=== PATIENT | male | born 1985 | race Caucasian/White ===

== ENCOUNTER 2017-07-20 20:34 | Emergency (ER) | payer BC ==
[~2017-07-20] VITALS: Ht 185.4 cm; Wt 90.7 kg
--- NOTE | 2017-07-20 20:42 | ER Report ---
History and Physical Time Seen By MD: 20:41 HPI/ROS CHIEF COMPLAINT: throat pain and swelling HISTORY OF PRESENT ILLNESS: This is a 31 year old male. He has some pain and swelling on the left side of his throat. Noted it yesterday. Pain with swallowing. No sick contact. No shortness of breath or chest pain. Some pain in the left side of face and neck. Allergies: Coded Allergies: morphine (Verified Allergy, Intermediate, RASH , 07/20/17) Home Meds Active Scripts Hydrocodone Bit/Acetaminophen (HYDROCODON-ACETAMINOPHEN 5-325) 1 Each Tablet, 1 EACH PO Q4H Y for PAIN, #8 TAB 0 Refills Prov:AMIRAH GARCIA MD 07/20/17 Methylprednisolone (METHYLPREDNISOLONE) 4 Mg Tab.ds.pk, 4 MG PO DIRECTED, #1 PACK 0 Refills Prov:AMIRAH GARCIA MD 07/20/17 Reviewed Nurses Notes: Yes Constitutional Vital Sign - Last 24 Hours 07/20/17 20:42 Temp 98.1 Pulse 99 Resp 16 B/P (MAP) 123/90 Pulse Ox 95 O2 Delivery Room Air Physical Exam General: Alert, no acute distress. Eyes: Pupils are round, equal and normal sclera. ENT: Erythematous nasal mucosa. Erythema with some shallow ulcerations in the posterior oropharynx with a small amount of soft tissue swelling present. Painful to swallow. No hypertrophy noted. Neck: Soft, supple and there are some anterior cervical chain lymphadenopathy. Chest: Breathing easily and clear. Cardiovascular: Regular rate and rhythm. Skin: No rashes. Medical Decision Making Data Points Laboratory Hematology Test 07/20/17 20:52 Influenza Virus Type A (PCR) Negative (NEGATIVE) Influenza Virus Type B (PCR) Negative (NEGATIVE) Group A Streptococcus Screen Negative (NEGATIVE) Chemistry Test 07/20/17 20:52 Influenza Virus Type A (PCR) Negative (NEGATIVE) Influenza Virus Type B (PCR) Negative (NEGATIVE) Group A Streptococcus Screen Negative (NEGATIVE) ED Course/Re-evaluation ED Course Initial strep and influenza swabs negative. Pain was worsening and the patient felt like more swelling. Re-evaluation was done and there was a little more swelling in the right throat as noted, but no a large amount. However, because of the progression of symptoms in a short time, we gave a 10mg IM infection of Decadron. The patient also had some Lortab. Watched for a period of time. The patient had improved pain and the swelling had decreased, although not completely. Will continue with Medrol Dosepak as noted. Did discuss that if this worsens to return and we would consider CT scan soft tissue neck, and did offer to do this while they were here even though swelling is mild and did not suspect that there would be any problems noted on scan. They will defer at this time and consider if worsening. Decision to Disposition Date: Jul 20, 2017 Decision to Disposition Time: 22:49 Depart Departure Latest Vital Signs Vital Signs Date Time Temp Pulse Resp B/P (MAP) Pulse Ox O2 Delivery O2 Flow Rate FiO2 07/20/17 20:42 98.1 99 16 123/90 95 Room Air Impression: Primary Impression: Acute viral pharyngitis Condition: Improved Disposition: HOME OR SELF-CARE New Scripts Hydrocodone Bit/Acetaminophen (HYDROCODON-ACETAMINOPHEN 5-325) 1 Each Tablet 1 EACH PO Q4H Y for PAIN, #8 TAB 0 Refills Prov: AMIRAH GARCIA MD 07/20/17 Methylprednisolone (METHYLPREDNISOLONE) 4 Mg Tab.ds.pk 4 MG PO DIRECTED, #1 PACK 0 Refills Prov: AMIRAH GARCIA MD 07/20/17 Patient Instructions: Pharyngitis (ED) Additional Instructions: Your sore throat appears to be due to a viral infection. Take Ibuprofen 200mg over the counter tablets, 4 tablets every 8 hours for pain. Take Lortab 5/325, one every 4 hours as needed for pain. Take the steroid pack called a Medrol Dosepak over the next 6 days. Return for worsening symptoms. AMIRAH GARCIA MD Jul 20, 2017 20:42
[2017-07-20] MEDS ORDERED: APAP/HYDROCODONE 325/5 TAB PO ONE (21:45)
[2017-07-20] MEDS ORDERED: ACET/HYDROC 5/325MG TH ER ONLY 2 TAB/BOTTLE PO ONE (21:45)
[2017-07-20] MEDS ORDERED: DEXAMETHASONE SOD PHOS 10MG/ML IM ONE (21:45)
[2017-07-20] MEDS ORDERED: LOR5/325 PO (22:51)
[2017-07-20] MEDS ORDERED: METH4TAB66 PO (22:51)
[2017-07-20 22:59] VITALS: BP 116/82
== END 2017-07-20 22:59 | disposition home or self-care (01) ==
LOC: ER 20:59
DX: J02.8 Acute pharyngitis due to other specified organisms (principal)
CPT/HCPCS: 87081; 87502; 87880; 96372; 99283; J1100

== ENCOUNTER → 2018-12-30 | Outpatient (CLI) | payer BC ==
[~2018-12-30] MED LIST: IBUP-136 PO; LOR5/325 PO; METH4TAB66 PO
--- NOTE | 2018-12-30 17:16 | RADIOLOGY IMAGING REPORT ---
FACILITY: [facility] - [place] PATIENT NAME: Jose Alfredo Vallecillo : 1985 MR: [id number] V: [id number] EXAM DATE: ORDERING PHYSICIAN: LISA GUTIERREZ TECHNOLOGIST: Location: [facility] - [place] Patient: Jose Alfredo Vallecillo : 1985 Visit/Account:[id number] Date of Sevice: 12/30/2018 TESTICULAR HISTORY: Left orchialgia COMPARISON: None. FINDINGS: Testes: Right testicle measures 4.1 x 2.5 x 3.6 cm. The left chest, measures 4.3 x 2.7 x 3.1 cm. Sy mmetric and unremarkable blood flow documented by color and Duplex Doppler ultrasound. Epididymides: There is a 1.5 mm cyst in the head epididymis on the right. The epididymides appear sl ightly heterogeneous bilaterally. Blood flow is unremarkable in each epididymis by color Doppler ult rasound. Hydrocele: Small bilaterally Varicocele: None. IMPRESSION: Small bilateral hydroceles Tiny cyst in the head epididymis on the right Epididymides appear slightly heterogeneous bilaterally possibly reflecting epididymitis Report Dictated By: Omaira Borja MD at 12/30/2018 5:07 PM Report E-Signed By: Omaira Borja MD at 12/30/2018 5:09 PM WSN:JAROD
== END ==
LOC: US 16:31
DX: N43.3 Hydrocele, unspecified (principal)
CPT/HCPCS: 76870

== ENCOUNTER 2019-01-01 03:36 | Emergency (ER) | payer BC ==
--- NOTE | 2019-01-01 03:40 | ER Report ---
History and Physical Time Seen By MD: 03:35 HPI/ROS CHIEF COMPLAINT: Suicidal ideation, depression HISTORY OF PRESENT ILLNESS: 33-year-old male brought in by police as a voluntary admission for suicidal ideation. Patient severely depressed. His for 15 years left him 2 weeks ago. They have one child. He's been sending her texts that are suspicious for suicidal ideation. Patient denies drug or alcohol. Patient has no actual plan. Patient's taken levofloxacin for prostatitis and epididymitis. REVIEW OF SYSTEMS: Respiratory: No cough, no dyspnea. Cardiovascular: No chest pain, no palpitations. Gastrointestinal: No vomiting, no abdominal pain. Musculoskeletal: No back pain. Allergies: Coded Allergies: morphine (Verified Allergy, Intermediate, RASH , 01/01/19) Home Meds Reported Medications Ibuprofen (IBUPROFEN) 200 Mg Capsule, 2 CAP PO Q6H, CAPSULE 01/28/18 Reviewed Nurses Notes: Yes Old Medical Records Reviewed: Yes Smoking Status: Never Smoker Constitutional Vital Sign - Last 24 Hours 01/01/19 01/01/19 01/01/19 01/01/19 03:40 03:45 03:51 04:00 Temp 98.2 Pulse 75 83 Resp 14 B/P (MAP) 143/104 (117) 143/104 140/89 (106) Pulse Ox 94 95 O2 Delivery Room Air 01/01/19 01/01/19 01/01/19 04:30 04:36 04:51 Pulse 90 B/P (MAP) 137/88 (104) Pulse Ox 94 92 Physical Exam General Appearance: The patient is alert, has no immediate need for airway protection and no current signs of toxicity. Vital signs stable, afebrile, pulse ox normal, seems withdrawn and depressed HEENT: Pupils equal and round no injection. TMs normal, oropharynx without redness or exudate Respiratory: Chest is non tender, lungs are clear to auscultation. Cardiac: regular rate and rhythm Gastrointestinal: Abdomen is soft and non tender, no masses, bowel sounds normal. Musculoskeletal: Neck: Neck is supple and non tender. No thyromegaly, no lymphadenopathy Extremities have full range of motion and are non tender. Skin: No rashes or lesions. DIFFERENTIAL DIAGNOSIS: After history and physical exam differential diagnosis was considered for depression including functional and major depression, situational depression, medication side effect, drugs and alcohol abuse. Medical Decision Making Data Points Result Diagram: 01/01/19 0400 Laboratory Chemistry Test 01/01/19 04:00 Sodium Level 140 mmol/L (137-145) Potassium Level 4.2 mmol/L (3.5-5.0) Chloride Level 105 mmol/L (98-107) Carbon Dioxide Level 24 mmol/L (22-30) Blood Urea Nitrogen 20 mg/dl (9-21) Creatinine 1.00 mg/dl (0.66-1.25) Glomerular Filtration Rate Calc > 60.0 Random Glucose 87 mg/dl (75-110) Calcium Level 9.8 mg/dl (8.4-10.2) Magnesium Level 2.0 mg/dl (1.7-2.2) Total Bilirubin 1.0 mg/dl (0.2-1.3) Aspartate Amino Transf (AST/SGOT) 39 U/L (0-35) Alanine Aminotransferase (ALT/SGPT) 44 U/L (0-56) Alkaline Phosphatase 47 U/L (0-126) Total Protein 7.9 g/dl (6.3-8.2) Albumin 4.8 g/dl (3.5-5.0) Thyroid Stimulating Hormone (TSH) 7.94 uIU/ml (0.46-4.68) Toxicology Test 01/01/19 03:36 01/01/19 04:00 Urine Opiates Screen Positive Urine Barbiturates Screen Negative Ur Tricyclic Antidepressants Screen Negative Urine Phencyclidine Screen Negative Urine Amphetamines Screen Negative Urine Benzodiazepines Screen Negative Urine Cocaine Screen Negative Urine Cannabinoids Screen Negative Salicylates Level < 10 mg/L Salicylate Last Dose Date unk Acetaminophen Level < 10 ug/ml Serum Alcohol < 10 mg/dl Urinalysis Test 01/01/19 03:36 Urine Color Yellow Urine Clarity Clear Urine pH 6.0 pH (4.8-9.5) Urine Specific [place] 1.023 Urine Protein Negative mg/dL (NEGATIVE) Urine Glucose (UA) Negative mg/dL (NEGATIVE) Urine Ketones Negative mg/dL (NEGATIVE) Urine Blood Moderate (NEGATIVE) Urine Nitrite Negative (NEGATIVE) Urine Bilirubin Negative (NEGATIVE) Urine Urobilinogen Negative mg/dL (0.2-1.9) Urine Leukocyte Esterase Negative (NEGATIVE) Urine RBC None /HPF (0-2/HPF) Urine WBC 1 /HPF (0-5/HPF) Urine Squamous Epithelial Cells Few /LPF (</=FEW) Urine Bacteria Negative /HPF (NONE-FEW) Urine Mucus Few /HPF (NONE-FEW) ED Course/Re-evaluation ED Course Patient was admitted to an examination room. H&P was done. The differential d iagnoses was considered. Patient is not actually suicidal. He said some suspicious text to his . She ranged him to meet with the police. Claiming that she was going to meet him to discuss her marital discord. Patient denies alcohol or drug use. Patient's tox screen is positive for opiates. Patient seen in consultation with mental health services who have no available for admission at this time. Patient is not actually suicidal is no actual plan. He is referred to outpatient follow-up. He is provided resources to contact. Decision to Disposition Date: Jan 01, 2019 Decision to Disposition Time: 03:51 Depart Departure Latest Vital Signs Vital Signs Date Time Temp Pulse Resp B/P (MAP) Pulse Ox O2 Delivery O2 Flow Rate FiO2 01/01/19 04:51 92 01/01/19 04:36 90 01/01/19 04:30 137/88 (104) 01/01/19 03:45 98.2 14 Room Air Impression: Primary Impression: Depression Additional Impression: Marital estrangement Condition: Improved Disposition: HOME OR SELF-CARE Patient Instructions: Depression (ED) Additional Instructions: Follow-up with mental health counseling Return to the ER for any suicidal ideation Problem Qualifiers Primary Impression: Depression Depression Type: major depressive disorder Major depression recurrence: single episode Active/Remission status: currently active Major depression episode severity: moderate Qualified Codes: F32.1 - Major depressive disorder, single episode, moderate MARLON LARSEN DO Jan 01, 2019 03:40
[2019-01-01 04:30] VITALS: BP 137/88
== END 2019-01-01 04:56 | disposition home or self-care (01) ==
LOC: ER 04:13
DX: F32.1 Major depressive disorder, single episode, moderate (principal)
CPT/HCPCS: 36415; 80305; 80320; 80329; 81001; 82040; 82247; 82310; 82374; 82435; 82565; 82947; 83735; 84075; 84132; 84155; 84295; 84443; 84450; 84460; 84520; 99283

== ENCOUNTER 2019-01-16 00:42 | Inpatient (IN) | payer BC ==
[~2019-01-16] VITALS: Ht 182.9 cm; Wt 88.5 kg
[~2019-01-16 00:42] MED LIST changes: +LEVO500T83 PO
[2019-01-16] MEDS ORDERED: LORazepam 1 MG TAB PO ONE (00:50)
[2019-01-16] MEDS ORDERED: MAG HYD/AL HYD/SIMETH 30ML UDC PO PRN (00:50)
[2019-01-16] MEDS ORDERED: ACETAMINOPHEN 325 MG TAB PO PRN (00:50)
[2019-01-16 01:57] VITALS: BP 131/97
[2019-01-16] MEDS ORDERED: MULTIVITAMINS TAB PO SCH (09:00)
[2019-01-16] MEDS: TRIMETH/SULFA DS 160-800MG TAB PO SCH ×2 (09:42→20:31)
[2019-01-16 13:00] VITALS: BP 120/68
--- NOTE | 2019-01-16 13:25 | SCHAAF H&P ---
DATE OF ADMISSION: January 16, 2019 Patient was seen at approximately 1030 hours in the a.m. of January 16, 2019 for note concerning this dictation. ATTENDING PHYSICIAN Julio Pereira MD PRESENTING PROBLEM/CHIEF COMPLAINT "My left and moved out." HISTORY OF PRESENT ILLNESS This is a pleasant 33-year-old male who presents to the emergency room for the second time this month, notably under very similar circumstances on January 01, 2019. Patient having a falling out with his . She is noted to be filing for divorce today. Patient has reportedly made suicidal threats to his . She told her , the patient, that he would have to come to the hospital if she would call police. Patient somewhat reluctantly came to the ER and was admitted without incident. Patient again reiterating during initial psychiatric interview that his admission here to the hospital was "100%" related to his filing for divorce. She said that she and him talked over her filing for divorce today last night and this resulted in patient's further decompensating mood, although it has been a low for a long time. The patient additionally reports specific stressors in that he works a lot and again deteriorating relationship. When asked about depressive symptoms, patient reports his appetite has been down some and he has lost some weight. He is guilty and remorseful and he wished he would not have "worked so much". Energy is low. Concentration is okay. Patient reports he does have interest in some activities, his mood remains low and sleep is sometimes problematic. Patient denies any other symptoms of psychiatric concerns. Negative for any self-arm issues, PTSD or patient not away of any psychotic symptoms. Patient's notably talking on the phone and says the patient has been "different overall" and exhibiting some uncharacteristic paranoid type behaviors. Patient's does not think the patient would harm himself. However, he is making comments and she wanted to make sure he gets help. MENTAL HEALTH HISTORY Patient has never had an inpatient visit before. He has no formal psychiatric care. Patient was encouraged to seek formal care when he left the emergency room on January 01, 2019 but has not obtained any actual appointments yet. Patient has no history of suicide attempts. FAMILY PSYCHIATRIC HISTORY Overall unremarkable except patient reported that his father saw a therapist for years after his brother was killed at age 10, when the patient was 5, in a farm accident. There are no suicides in the family. Not believed to be any drug or alcohol use. PAST MEDICAL HISTORY Significant for what appears to be a bout of prostatitis and patient notably started on Levaquin, which could potentially exacerbate depressive or even mild psychotic symptoms in this patient. Patient also notably positive for opiates both on January 01 and January 16, 2019 admission. However, patient believably stating he is not taking opiates and this is likely a false positive related to Levaquin administration. Patient reports he has had "lots of concussions" through his life of various reasons and patient reports "ongoing shoulder pain and back pain". ALLERGIES Morphine. SOCIAL HISTORY The patient was born in [place] and raised there. Parents were at the time of his and still are. He is the youngest of four children. He reports his brother at age 10 in a farming accident when the patient himself was 5 years old and this continues to bother him somewhat to this day. He is a high school graduate. Obtained a Bachelor's degree of [employer]. Patient has never been in the . He has been 12 years and they have one child, age 12. Patient works doing ranch work mostly and currently has been living alone as his has an apartment in town and she is filing for divorce. LEGAL HISTORY None. SUBSTANCE ABUSE HISTORY Patient reports non. PHYSICAL EXAMINATION Please see emergency room note. This is a 33-year old male in no acute medical distress. Vital signs at the time of admission: Temperature 97.6, pulse 86, respiratory rate 20, blood pressure 131/90 and pulse oximetry 91% on room air. LABORATORY DATA TSH 4.66, CBC unremarkable. RBC slightly elevated at 6.18. Chemistry panel overall unremarkable as well. TSH 4.66. Urinalysis unremarkable and toxicology screen again positive for opiates, which is likely a false positive from Levaquin, negative for other substances of abuse with a nondetectable serum alcohol level. MENTAL STATUS EXAMINATION GENERAL APPEARANCE, BEHAVIOR AND ATTITUDE: This is a polite, cooperative, 33- year old male. Psychomotor retardation evident. Patient tearful, making poor to fair eye contact. Patient admitting to significant depression over the realization that his is filing for divorce. We will continue to evaluate. SPEECH: Within normal limits. Quiet at times. Otherwise, mostly within normal limits. Regular rate, rhythm, volume and tone. MOOD: Depressed. AFFECT: Depressed appearing. THOUGHT PROCESSES: No gross loose associations or flight of ideas. THOUGHT CONTENT: Free of auditory or visual hallucinations, ideas of reference, thought broadcastings, delusions, obsessions or compulsions. Patient admitting to feeling very down and admitting vaguely to suicidal thoughts. Patient has texted his suicidal statements. Denying homicidal ideations. SENSORIUM: Clear. COGNITION: Alert and oriented to person, place, time and situation. MEMORY: Immediate, recent and remote estimated intact. INTELLIGENCE: Average, based on interview. INSIGHT AND JUDGMENT: Patient here on a voluntary basis; would have likely been emergency detained. Patient reluctantly agreeing to seek help on a voluntary basis. . ASSESSMENT This is a profoundly depressed 33-year-old male who reports depression and overall admission here to the Behavioral Health Unit is "100%" related to the pending divorce from his of 12 years. At this time, we will work with patient to get through resolution of marriage and pending divorce. We will also look into potential contributors such as Levaquin use and recent prednisone use as well in this patient suffering from prostate abnormality of unknown etiology, likely treated for prostatitis at this time, and we will encouraged effective sleep. DIAGNOSES 1. Partner relational problems. 2. Adjustment disorder. 3. Depressed mood. 4. Limited social support. PLAN 1. Admit to the unit. 2. Necessary precautions will be implemented. 3. The patient will participate in individual and group therapy. 4. Medications will be administered and titrated accordingly. 5. We will stop Levaquin at this time and prescribe Bactrim. 6. Estimated length of stay 3 to 5 days at this time and we will work on effective outpatient management upon discharge. Guns will be removed from the home as well. [place]
[2019-01-16] MEDS ORDERED: traZODone HCL 50 MG TAB PO SCH (21:00)
== END 2019-01-17 00:01 | disposition still patient (30) | DRG 951 ==
LOC: BHS 00:42
PROVIDERS: ADMIT Psychiatry & Neurology Psychiatry; ATTEND Psychiatry & Neurology Psychiatry
DX: Z02.9 Encounter for administrative examinations, unspecified (principal)
CPT/HCPCS: 36415; 84439; 84481